=== PATIENT | male | born 1960 | race Caucasian/White ===

== ENCOUNTER → 2017-05-30 | Outpatient (CLI) | payer BC ==
[~2017-05-30] MED LIST: ACETAMINOPHEN PO; ALBUTEROL SULFAT4 MG NEB; ALBUTEROL20 ml INH; ALPRAZOLAM PO; AMLODIPINE BESYL5 MG PO; ASPIRIN81 M2 PO; ATORVASTATIN CA10 MG PO; AUGMENTIN875 MG PO; BUMEX1 MG PO; CLOPIDOGREL75 MG PO; FLAGYL PO; HYDROCODON-ACE1 EAC7 PO; LOPERAMIDE HCL2 M1 PO; LOPRESSOR PO; MULTI VITAMIN1 EACH PO; PRILOSEC PO; SPIRIVA18 MCG INH
--- NOTE | ~2017-05-30 | CT14 ---
[facility] A Service of [facility] & [facility] RADIOLOGY TEXT RESULTS PATIENT: JUAN GRANT [facility] 58 UN[facility] #: [id number] AGE: [address]: Roger Vines MD SEX: M ORDER DR: [id number] [facility] [address] [place], [place] [address] [id number] O MR#: [id number] Acc #: [id number] NAME: JUAN GRANT : 1960 SEX: M STUDY DATE/TIME: 05/30/2017 10:27 UNIT: [facility] ROOM: STUDY DESCRIPTION: CT Angio Abdomen and Pelvis Attending Physician: Roger Vines M.D. Referring Physician: Roger Vines M.D. Ordering Physician: Roger Vines M.D. Primary Care Physician: Torres Harris M.D. MEDICAL IMAGING REPORT This report is preliminary unless electronic signature is present EXAM CT angiogram of the abdomen and pelvis INDICATION Patient has a history of peripheral arterial disease. The patient has had a history of an aortic stent graft. This is a followup study. Comparison is made to prior exam performed April 04, 2016. TECHNIQUE Axial precontrast imaging was obtained through the abdomen followed by arterial phase imaging through the abdomen and pelvis and 90 second delayed phase imaging through the stent. This CT exam was performed with one or more of the following radiation dose reduction techniques: automatic exposure control, adjustment of mA and/or kV according to patient size, and iterative reconstruction. FINDINGS Background emphysematous changes are noted. Distal descending thoracic aorta is noted to have some areas of ulcerated plaque within it. Similar findings were present in March 2016. Suprarenal abdominal aorta measures 3.7 cm x 3.3 cm which is stable when compared to prior studies from March 2016. There is probably some mild narrowing involving the origin of the celiac axis. Patient appears to be status post abdominal aortic repair. There is a single left renal artery with some mild narrowing noted at its origin. There are two right renal arteries, one of which is patent while the other is occluded at its origin and there3 is marked atrophy of the right kidney. Some high-density material is seen adjacent to the superior aspect of the infrarenal abdominal aorta. I am uncertain of the clinical significance, it was also STS. [facility] A Service of [facility] & [facility] RADIOLOGY TEXT RESULTS PATIENT: JUAN GRANT [facility] : 58 UNIT #: [id number] AGE: [address]: Roger Vines MD SEX: M ORDER DR: present in March 2016 and appears unchanged. Potentially, it was related to the repair, and again, was also present in March 2015. I think overall the appearance of the aneurysm sac is stable when compared to exams dating back to March 2015. The distal abdominal aorta measures 2.8 cm x 2.6 cm, also not significantly changed when compared to March 2015. Atherosclerotic plaque continues into the common iliac arteries bilaterally without definite flow-limiting stenosis. There is probably some narrowing involving the origin of the left internal iliac artery and also probably the right internal iliac artery. No definite flow-limiting stenosis of the external iliac arteries is identified. There is some mild plaque seen within the common femoral arteries bilaterally. Visualized portions of the profunda femoris and superficial femoral artery is patent. No suspicious hepatic lesions are seen. Calcified granulomata are seen within the spleen, stomach, and proximal small bowel are within normal limits. Right adrenal gland is somewhat bulky in appearance but is not significantly changed compared when compared to prior studies. Again, there is marked right renal atrophy. Patient does have a right renal cyst. Additional cysts are noted on the left kidney. No free fluid or adenopathy is seen within the abdomen. Gallbladder does appear to contain a stone within it. The appendix is visualized and is within normal limits. There is colonic diverticulosis without evidence of diverticulitis. Prostate gland contains some dystrophic calcifications. Urinary bladder appears unremarkable. No acute fluid or adenopathy is seen within the pelvis. Review of bony windows shows some wedging at T11 which has been stable since March 2016. IMPRESSION 1. Stable appearance to infrarenal abdominal aortic aneurysm repair when compared to exams dating back to March 2015. 2. Stable appearance to ulcerated plaque seen within the descending thoracic aorta. 3. 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 4. Cholelithiasis. 5. 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 Please see the body of the report for any other additional incidental findings. Dictated by... Meaghan Harris M.D. THIS IS AN ELECTRONICALLY VERIFIED REPORT Meaghan Harris M.D. at 05/31/2017 4:47 PM AFF/ljd [facility] A Service of [facility] RADIOLOGY TEXT RESULTS PATIENT: JUAN GRANT [facility] : 58 UNIT #: [id number] AGE: [address]: Roger Vines MD SEX: M ORDER DR: TD: 05/31/2017 02:31 JOB #: [id number] MEDICAL IMAGING REPORT Page 1 of 1 COPY
--- NOTE | ~2017-05-30 | US136 ---
[facility] A Service of [facility] & [facility] RADIOLOGY TEXT RESULTS PATIENT: JUAN GRANT [facility] 58 UNIT #: [id number] AGE: [address]: Roger Vines MD SEX: M ORDER DR: [id number] [facility] [address] [place], [place] [address] [id number] O MR#: [id number] Acc #: [id number] NAME: JUAN GRANT : 1960 SEX: M STUDY DATE/TIME: 05/30/2017 9:32 UNIT: [facility] ROOM: STUDY DESCRIPTION: U/L [facility] [employer] Bil Attending Physician: Roger Vines M.D. Referring Physician: Roger Vines M.D. Ordering Physician: Roger Vines M.D. Primary Care Physician: Torres Harris M.D. MEDICAL IMAGING REPORT This report is preliminary unless electronic signature is present EXAM Lower extremity BRIELLE. REASON FOR EXAM Peripheral arterial disease. History of left leg bypass. FINDINGS The right brachial pressure is 149. Left is 137. Right dorsalis pedis pressure is 115 and posterior tibial at 139 for an BRIELLE of 1.01 and a first pressure of 107 mmHg. Pressures at the left dorsalis pedis and posterior tibial arteries were not taken due to the graft for the bypass being at the ankle. Left first digital pressure was 150 mmHg. PVR waveform at the right ankle is normal. Left ankle waveform was not obtained. The right and left first digital waveforms were intact with the right being diminished as compared to the left. Arterial waveforms of the dorsalis pedis and posterior tibial arteries demonstrate triphasic waveforms bilateral. IMPRESSION 1. No arterial insufficiency of the right lower extremity with adequate perfusion of the first toe. 2. No apparent arterial insufficiency of the left lower extremity with normal waveforms at the ankle and adequate perfusion of the first toe. Dictated by... Carisa Vidal M.D. THIS IS AN ELECTRONICALLY VERIFIED REPORT Carisa Vidal M.D. at 06/07/2017 9:42 AM [facility] A Service of [facility] & [facility] RADIOLOGY TEXT RESULTS PATIENT: JUAN GRANT LOCATION: [facility] : 58 UNIT #: [id number] AGE: [address]: Roger Vines MD SEX: M ORDER DR: Mike TD: 05/30/2017 17:03 JOB #: [id number] MEDICAL IMAGING REPORT Page 1 of 1 COPY
--- NOTE | ~2017-05-30 | US83 ---
[facility] A Service of [facility] & [facility] RADIOLOGY TEXT RESULTS PATIENT: JUAN GRANT LOCATION: [facility] : 58 UNIT #: [id number] AGE: [address]: Roger Vines MD SEX: M ORDER DR: [id number] [facility] [address] [place], [place] [address] [id number] O MR#: [id number] Acc #: [id number] NAME: JUAN GRANT : 1960 SEX: M STUDY DATE/TIME: 05/30/2017 11:15 UNIT: [facility] ROOM: STUDY DESCRIPTION: [employer] Attending Physician: Roger Vines M.D. Referring Physician: Roger Vines M.D. Ordering Physician: Roger Vines M.D. Primary Care Physician: Torres Harris M.D. MEDICAL IMAGING REPORT This report is preliminary unless electronic signature is present EXAM Left lower extremity graft surveillance ultrasound. DATE OF EXAM 05/30/17. REASON FOR EXAM Peripheral arterial disease. History of left leg bypass. FINDINGS The left common femoral artery is patent with triphasic waveform velocity of 164 cm/second. The profunda femoral artery is patent with normal waveform and a velocity of 80 cm/second. The superficial femoral artery is patent throughout its course without evidence of stenosis or occlusion with a proximal velocity of 153 cm/second, mid thigh 91 cm/second and distally 121 cm/second. The popliteal artery has mild atherosclerotic plaque proximally but a velocity of 72 cm/second. There are limited images of a left lower extremity [id number] bypass. Bypass in the mid calf appears patent with a velocity of 16 cm/second. Velocity at the ankle is 19 cm/second. IMPRESSION 1. Mild atherosclerotic plaque within the left popliteal artery which does not appear to be flow limiting. 2. Limited images of the left popliteal to posterior tibial artery bypass but visualized images show the bypass to be patent but with slow flow. Clinical correlation suggested. Dictated by... Carisa Vidal M.D. STS. [facility] A Service of [facility] & [facility] RADIOLOGY TEXT RESULTS PATIENT: JUAN GRANT LOCATION: [facility] : 58 UNIT #: [id number] AGE: [address]: Roger Vines MD SEX: M ORDER DR: THIS IS AN ELECTRONICALLY VERIFIED REPORT Carisa Vidal M.D. at 06/07/2017 9:42 AM CHERRI/armando TD: 05/30/2017 17:31 JOB #: [id number] MEDICAL IMAGING REPORT Page 1 of 1 COPY
[2017-05-30 10:03] LABS: CREATININE SERUM 1.1 mg/dL (0.6-1.4); GLOM FILT RATE Estimated 73.6 mL/min (>60)
== END | disposition home or self-care (01) ==
LOC: CCAT 08:54
PROVIDERS: Surgery Vascular Surgery
DX: I73.9 Peripheral vascular disease, unspecified (principal); I70.202 Unspecified atherosclerosis of native arteries of extremities, left leg; I70.0 Atherosclerosis of aorta; I77.811 Abdominal aortic ectasia; K80.20 Calculus of gallbladder without cholecystitis without obstruction; N28.0 Ischemia and infarction of kidney; N26.1 Atrophy of kidney (terminal); Z98.890 Other specified postprocedural states
CPT/HCPCS: 36415; 74174; 82565; 84520; 93922; 93926; Q9967